=== PATIENT | male | born 1965 | race Caucasian/White ===

== ENCOUNTER 2018-09-22 13:05 | Emergency (ER) | payer OTHER ==
[~2018-09-22] VITALS: Ht 177.8 cm; Wt 73.9 kg
--- NOTE | 2018-09-22 13:09 | NUR ---
CALLED FOR TRIAGE NOT IN THE WAITING ROOM.
[2018-09-22 13:39] VITALS: BP 130/65
--- NOTE | 2018-09-22 13:41 | NUR ---
PT BIBS AXOX4 C/O SOMETHING STUCK DOWN IN HIS THROAT,PT VERBAL, - SOB, -LOC- TRAUMA
[2018-09-22] MEDS ORDERED: WATER FOR INJECTION,STERILE 10 ML ONE (13:53)
[2018-09-22] MEDS ORDERED: GLUCAGON,HUMAN RECOMBINANT 1 MG/VIAL VIAL ONE (13:53)
[2018-09-22] MEDS ORDERED: GLUCAGON,HUMAN RECOMBINANT 1 MG/VIAL VIAL IV ONE (14:00)
--- NOTE | 2018-09-22 14:56 | NUR ---
Patient discharged to home in stable condition. Written and verbal after care instructions given. Patient verbalizes understanding of instruction.
== END 2018-09-22 15:03 | disposition home or self-care (01) ==
LOC: ER 13:09
DX: T18.128A Food in esophagus causing other injury, initial encounter (principal); I10 Essential (primary) hypertension; F32.9 Major depressive disorder, single episode, unspecified; G62.9 Polyneuropathy, unspecified; X58.XXXA Exposure to other specified factors, initial encounter; Y93.89 Activity, other specified; Y92.89 Other specified places as the place of occurrence of the external cause; Y99.8 Other external cause status
CPT/HCPCS: 96374; 99283; J1610